=== PATIENT | female | born 1975 | race Two or more races ===

== ENCOUNTER 2022-09-20 19:54 | Emergency (ER) | payer OTHER ==
[~2022-09-20] VITALS: Ht 165.1 cm; Wt 59.0 kg
--- NOTE | 2022-09-20 20:10 | NUR ---
Dr Eason at bedside, MSE in progress
[2022-09-20] MEDS ORDERED: ACETAMINOPHEN ES 500 MG TABLET ONE (20:26)
[2022-09-20] MEDS ORDERED: ACETAMINOPHEN ES 500 MG TABLET PO ONE (20:30)
[2022-09-20 20:53] LABS: HEMATOCRIT 38.2 % (31.2-41.9); MEAN CORPUSCULAR HEMOGLOBIN 29.7 uug (24.7-32.8); MEAN CORPUSCULAR VOLUME 89.3 fL (75.5-95.3); PLATELET COUNT (AUTO) 383 K/uL (179-408)
[2022-09-20 21:02] LABS: *BILIRUBIN,URIN NEGATIVE (NEGATIVE); *BLOOD, URINE 1+ (NEGATIVE); *CLARITY,URINE CLEAR (CLEAR); *COLOR,URINE LIGHT YELLOW (YELLOW); *KETONES,URINE NEGATIVE (NEGATIVE); *UROBILINOGEN,URINE 0.2 E.U./dl (NORMAL); LEUKOCYTE ESTERASE ,URINE NEGATIVE (NEGATIVE); NITRITE, URINE NEGATIVE (NEGATIVE); PH,URINE 7.5 (5.0-8.0); UGLUCOSE NEGATIVE (NEGATIVE)
[2022-09-20 21:04] LABS: CREATININE 0.7 mg/dL (0.6-1.3); POTASSIUM 3.8 mmol/L (3.5-5.1)
[2022-09-20 21:56] LABS: BILIRUBIN,DIRECT 0.1 mg/dL (0.0-0.2); BILIRUBIN,TOTAL 0.3 mg/dL (0.2-1.0); TOTAL PROTEIN, SERUM 7.7 g/dL (6.4-8.2)
[2022-09-20 22:14] LABS: SQUAMOUS EPITHELIAL CELL,UR FEW /HPF (NONE SEEN); WBC,URINE 0-3 /HPF (0-3)
[2022-09-20 22:15] LABS: BACTERIA,URINE FEW /HPF (NONE SEEN)
--- NOTE | 2022-09-20 23:15 | NUR ---
Patient discharged to home in stable condition. Written and verbal after care instructions given. Patient verbalizes understanding of instructions. Stressed follow up or return to ER for worsening s/s. Patient is a/ox4, NAD noted. Patient ambulated with steady gait
[2022-09-20 23:16] VITALS: BP 128/67
[2022-09-23 02:06] LABS: *GC NAA Negative (Negative)
[2022-09-23 03:06] LABS: *TRIC.VAG. NAA Negative (Negative)
== END 2022-09-20 23:16 | disposition home or self-care (01) ==
LOC: ER 19:54
DX: S39.011A Strain of muscle, fascia and tendon of abdomen, initial encounter (principal); R10.2 Pelvic and perineal pain; X58.XXXA Exposure to other specified factors, initial encounter; Y93.89 Activity, other specified; Y92.89 Other specified places as the place of occurrence of the external cause; Y99.8 Other external cause status
CPT/HCPCS: 83690; 85025; 86592; 87491; A4663; A9150

== ENCOUNTER 2023-06-05 17:57 | Emergency (ER) | payer OTHER ==
[~2023-06-05] VITALS: Ht 165.1 cm; Wt 55.8 kg
[2023-06-05 19:09] LABS: BASOPHILS % (AUTO) 0.6 % (0.0-2.0); EOSINOPHILS # (AUTO) 0.4 K/uL (0.0-0.7); EOSINOPHILS % (AUTO) 4.8 % (0.0-7.0); HEMATOCRIT 38.7 % (31.2-41.9); HEMOGLOBIN 13.2 g/dL (10.9-14.3); LYMPHOCYTES # (AUTO) 2.2 K/uL (0.8-4.8); LYMPHOCYTES % (AUTO) 30.4 % (20.5-51.5); MEAN CORPUSCULAR HEMOGLOBIN 30.5 uug (24.7-32.8); MEAN CORPUSCULAR HGB CONC 34 g/dL (32.3-35.6); MEAN CORPUSCULAR VOLUME 89.6 fL (75.5-95.3); MONOCYTES # (AUTO) 0.5 K/uL (0.1-1.30); MONOCYTES % (AUTO) 7.2 % (0.0-11.0); NEUTROPHILS # (AUTO) 4.2 K/uL (1.8-8.9); PLATELET COUNT (AUTO) 314 K/uL (179-408); RED BLOOD CELL COUNT(AUTO) 4.32 MIL/uL (3.63-4.92); RED CELL DISTRIBUTION WIDTH 12.7 % (12.3-17.7); WHITE BLOOD COUNT (AUTO) 7.3 K/uL (3.8-11.8)
[2023-06-05 19:14] LABS: DIFFERENTIAL COMMENT 1
[2023-06-05 19:26] LABS: ALBUMIN 4.6 g/dL (3.4-5.0); BILIRUBIN,DIRECT 0.2 mg/dL (0.0-0.2); BILIRUBIN,TOTAL 0.8 mg/dL (0.2-1.0); CALCIUM 10.3 mg/dL (8.5-10.1); CREATININE 0.7 mg/dL (0.6-1.3); POTASSIUM 3.4 mmol/L (3.5-5.1); TOTAL PROTEIN, SERUM 8.7 g/dL (6.4-8.2)
[2023-06-05 19:28] LABS: *BILIRUBIN,URIN NEGATIVE (NEGATIVE); *BLOOD, URINE NEGATIVE (NEGATIVE); *CLARITY,URINE CLEAR (CLEAR); *COLOR,URINE YELLOW (YELLOW); *KETONES,URINE NEGATIVE (NEGATIVE); *PROTEIN,URINE NEGATIVE (NEGATIVE); *UROBILINOGEN,URINE 0.2 E.U./dl (NORMAL); NITRITE, URINE NEGATIVE (NEGATIVE); UGLUCOSE NEGATIVE (NEGATIVE)
[2023-06-05 19:30] LABS: LEUKOCYTE ESTERASE ,URINE NEGATIVE (NEGATIVE)
[2023-06-05 19:31] LABS: *URINE HCG, QUAL NEGATIVE (NEGATIVE)
[2023-06-05 19:33] LABS: *OCCULT BLOOD STOOL NEGATIVE (NEGATIVE)
[2023-06-05] MEDS: IV NORMAL SALINE 1000 ML BAG IV ONE (20:00)
[2023-06-05 21:18] VITALS: BP 120/68; TEMP 98; O2SAT 98
== END 2023-06-05 21:19 | disposition home or self-care (01) ==
LOC: ER 17:59
DX: R10.32 Left lower quadrant pain (principal); R10.2 Pelvic and perineal pain
CPT/HCPCS: 99284; 74176; 96360; 82270; 80076; 80048; 81003; 84703; 83690; 85025; 36415; J7040; A4606; A4663

== ENCOUNTER 2024-12-07 22:17 | Emergency (ER) | payer OTHER ==
[~2024-12-07] VITALS: Ht 165.1 cm; Wt 57.6 kg
[2024-12-07 22:30] VITALS: BP 117/82
[2024-12-07] MEDS ORDERED: TRAN650T2 PO (22:54)
[2024-12-07] MEDS ORDERED: NAPR-1192 PO (22:54)
[2024-12-07 22:58] LABS: PLATELET COUNT (AUTO) 339 K/uL (179-408); RED BLOOD CELL COUNT(AUTO) 3.87 MIL/uL (3.63-4.92); RED CELL DISTRIBUTION WIDTH 14.8 % (12.3-17.7); WHITE BLOOD COUNT (AUTO) 7.7 K/uL (3.8-11.8)
[2024-12-07 23:12] LABS: CREATININE 0.6 mg/dL (0.6-1.3); SODIUM SERUM 137.0 mmol/L (136-145); UREA NITROGEN, BLOOD 15.0 mg/dL (7-18)
[2024-12-07 23:28] LABS: PREGNANCY TEST SERUM QUAN 1.0 miul/L (0-6)
[2024-12-07 23:34] VITALS: BP 118/79; O2SAT 100
== END 2024-12-07 23:36 | disposition home or self-care (01) ==
LOC: ER 22:19
DX: N92.0 Excessive and frequent menstruation with regular cycle (principal); R10.2 Pelvic and perineal pain; Z78.0 Asymptomatic menopausal state
CPT/HCPCS: 36415; 84443; 85025; A4606; A4663

== ENCOUNTER 2025-02-18 23:13 | Emergency (ER) | payer OTHER ==
[~2025-02-18 23:13] MED LIST: NAPR-1192 PO; TRAN650T2 PO
[2025-02-19] MEDS ORDERED: IOHEXOL 300MG/ML 100 ML INFUS..BTL ONE (20:37)
[2025-02-19] MEDS ORDERED: ERYT-113 PO (22:08)
== END 2025-02-19 00:50 | disposition left against medical advice (07) ==
LOC: ER 23:16
DX: Z53.21 Procedure and treatment not carried out due to patient leaving prior to being seen by health care provider (principal)
CPT/HCPCS: Q9967

== ENCOUNTER 2025-02-19 18:44 | Emergency (ER) | payer OTHER ==
[~2025-02-19] VITALS: Ht 165.1 cm; Wt 56.7 kg
[2025-02-19 19:43] LABS: PLATELET COUNT (AUTO) 366 K/uL (179-408); RED BLOOD CELL COUNT(AUTO) 4.26 MIL/uL (3.63-4.92); RED CELL DISTRIBUTION WIDTH 14.1 % (12.3-17.7); WHITE BLOOD COUNT (AUTO) 9.1 K/uL (3.8-11.8)
[2025-02-19] MEDS ORDERED: ONDANSETRON 4 MG/2 ML VIAL ONE (19:48)
[2025-02-19] MEDS: ONDANSETRON 4 MG/2 ML VIAL IV ONE (19:49)
[2025-02-19] MEDS: IV NORMAL SALINE 1000 ML BAG IV ONE (19:49)
[2025-02-19 19:52] LABS: CREATININE 0.6 mg/dL (0.6-1.3); SODIUM SERUM 138.0 mmol/L (136-145); UREA NITROGEN, BLOOD 10.0 mg/dL (7-18)
[2025-02-19 19:57] LABS: ASPARTATE AMINOTRANSFERASE 10.0 U/L (15-37); TOTAL PROTEIN, SERUM 8.3 g/dL (6.4-8.2)
[2025-02-19 20:17] LABS: *BILIRUBIN,URIN NEGATIVE (NEGATIVE); *BLOOD, URINE NEGATIVE (NEGATIVE); *CLARITY,URINE CLEAR (CLEAR); *COLOR,URINE YELLOW (YELLOW); *KETONES,URINE NEGATIVE (NEGATIVE); *PROTEIN,URINE NEGATIVE (NEGATIVE); *UROBILINOGEN,URINE 0.2 E.U./dl (NORMAL); LEUKOCYTE ESTERASE ,URINE NEGATIVE (NEGATIVE); NITRITE, URINE NEGATIVE (NEGATIVE); UGLUCOSE NEGATIVE (NEGATIVE)
[2025-02-19 20:20] LABS: *URINE HCG, QUAL NEGATIVE (NEGATIVE)
[2025-02-19 21:00] VITALS: BP 129/78
[2025-02-19] MEDS ORDERED: IV NS 1000 ML 1,000 ML IV ONE (21:15)
[2025-02-19] MEDS ORDERED: ERYT-113 PO (22:08)
[2025-02-19 23:25] VITALS: BP 132/80; O2SAT 98
== END 2025-02-19 22:13 | disposition home or self-care (01) ==
LOC: ER 18:47
DX: K59.00 Constipation, unspecified (principal); K56.7 Ileus, unspecified
CPT/HCPCS: 99285; 74177; 96374; 96361; 80076; 80048; 81003; 84703; 83690; 83735; 85025; 36415; J2405; J7040; A4606; A4663